=== PATIENT | male | born 1960 | race Caucasian/White ===

== ENCOUNTER 2018-07-17 08:48 | Emergency (ER) | payer SELFPAY ==
[2018-07-17] MEDS ORDERED: Ketorolac 60 MG/2 ML SDV IM ONE (09:17)
--- NOTE | 2018-07-17 09:17 | EDM.PDOC ---
ED HPI GENERAL MEDICAL PROBLEM - General Chief Complaint: General Stated Complaint: PT FELL AND HURT LF RIB Time Seen by Provider: 07/17/18 09:01 - History of Present Illness INITIAL COMMENTS - FREE TEXT/NARRATIVE: HISTORY AND PHYSICAL: History of present illness: The patient is a 57-year-old male who presents complaints of left posterior rib pain that started after he slipped last night and the shower and hit the area on the toilet. He did not pass out or black out and has no head midline back pain neck pain abdominal pain or shortness of breath. He says he has pain in the posterior left ribs with movement or taking deep breath. He has taken Tylenol and Motrin [id number] this morning and he was advised on appropriate dosing. The patient has no extremity complaints area Review of systems: As per history of present illness and below otherwise all systems reviewed and negative. Past medical history: As per history of present illness and as reviewed below otherwise noncontributory. Surgical history: As per history of present illness and as reviewed below otherwise noncontributory. Social history: No reported history of drug or alcohol abuse. Family history: As per history of present illness and as reviewed below otherwise noncontributory. Physical exam General: Well-developed well-nourished overweight man who is nontoxic and speaking clearly in the ED without breathlessness. His vital signs have been noted by me. HEENT: Atraumatic, normocephalic, negative for conjunctival pallor or scleral icterus, mucous membranes moist, throat clear, neck supple, nontender, trachea midline. There is no evidence of any scalp or facial trauma. Her are no midline step-offs tenderness defects of the cervical spine Lungs: Clear to auscultation with slight splinting on deep breaths due to discomfort, breath sounds equal bilaterally, chest wall has no evidence of any ecchymosis or abrasions and has tenderness at the posterior left ribs without defects or crepitus. Heart: S1S2, regular rate and rhythm no overt murmurs Abdomen: Soft, nondistended, nontender. NABS. Negative for costovertebral tenderness. Pelvis: Stable nontender. Genitourinary: Deferred. Rectal: Deferred. Extremities: Atraumatic, full range of motion of all extremities defects or tenderness, negative for cords or calf pain. Neurovascular unremarkable. Neuro: Awake, alert, oriented. Cranial nerves II through XII unremarkable. Cerebellum unremarkable. Motor and sensory unremarkable throughout. Exam nonfocal. Back: There are no midline step-offs tenderness defects the thoracic or lumbar spine but there is posterior rib tenderness on the left described above without any soft tissue injuries appreciated Diagnostics: Patient was offered x-rays of the left ribs and declines Therapeutics: Toradol When I talked to the patient about doing x-rays to diagnose the has a rib fracture he says that he doesn't want to do those because he doesn't have insurance. He says he does want something for the pain. He is telling me that he has had a prior injury and that he has "soft ribs" on that side. I told him that I do not appreciate that on my examination and he has no pre-existing bony abnormalities in his medical history so I am not sure what he means by soft ribs. He did get angry at me at that point and said that he would just like something for pain and no further testing. I will give him some Toradol here and a few Tylenol with Codeine for home but told him that I can't do anything more than that without doing imaging. He states understanding Impression: Left posterior chest wall contusion Definitive disposition and diagnosis as appropriate pending reevaluation and review of above. left rib Pain Score (Numeric/FACES): 10 - Related Data Allergies Allergy/AdvReac Type Severity Reaction Status Date / Time No Known Allergies Allergy Verified 07/17/18 09:03 Past Medical History Cardiovascular History: Reports: Hypertension - Infectious Disease History Infectious Disease History: Reports: Measles - Past Surgical History Other Respiratory Surgeries/Procedures: hx of collapsed lung GI Surgical History: Reports: Hernia Repair/Other Musculoskeletal Surgical History: Reports: Shoulder Surgery Social & Family History - Family History Family Medical History: Noncontributory - Tobacco Use Smoking Status *Q: Current Every Day Smoker Years of Tobacco use: 30 Packs/Tins Daily: 1 - Caffeine Use Caffeine Use: Reports: Energy Drinks - Alcohol Use Days Per Week of Alcohol Use: 2 Number of Drinks Per Day: 3 Total Drinks Per Week: 6 - Recreational Drug Use Recreational Drug Use: No ED ROS GENERAL - Review of Systems Review Of Systems: ROS reveals no pertinent complaints other than HPI. ED EXAM, GENERAL - Physical Exam Exam: See Below (See dictation) Course - Vital Signs Last Recorded V/S: Last Vital Signs Temp 36.3 C 07/17/18 09:04 Pulse 94 07/17/18 09:04 Resp 18 07/17/18 09:04 BP 149/94 H 07/17/18 09:04 Pulse Ox 95 07/17/18 09:04 - Orders/Labs/Meds Orders: Active Orders 24 hr Category Date Time Status Ketorolac [Toradol] Med 07/17/18 09:17 Once 60 mg IM ONETIME ONE Departure - Departure Time of Disposition: Disposition: Home, Self-Care 01 Condition: Good Clinical Impression: Contusion of rib on left side Qualifiers: Encounter type: initial encounter Qualified Code(s): S20.212A - Contusion of left front wall of thorax, initial encounter - Discharge Information Referrals: PCP,None [Primary Care Provider] - Forms: ED Department Discharge Additional Instructions: The following information is given to patients seen in the emergency department who are being discharged to home. This information is to outline your options for follow-up care. We provide all patients seen in our emergency department with a follow-up referral. The need for follow-up, as well as the timing and circumstances, are variable depending upon the specifics of your emergency department visit. If you don't have a primary care physician on staff, we will provide you with a referral. We always advise you to contact your personal physician following an emergency department visit to inform them of the circumstance of the visit and for follow-up with them and/or the need for any referrals to a consulting specialist. The emergency department will also refer you to a specialist when appropriate. This referral assures that you have the opportunity for followup care with a specialist. All of these measure are taken in an effort to provide you with optimal care, which includes your followup. Under all circumstances we always encourage you to contact your private physician who remains a resource for coordinating your care. When calling for followup care, please make the office aware that this follow-up is from your recent emergency room visit. If for any reason you are refused follow-up, please contact the [facility] emergency department at and ask to speak to the emergency department charge nurse. [facility] Primary care- Internal Medicine and Family [place] [phone] Use ice to area for the next 24 hours and subsequently as needed for pain and inflammation/swelling. Please use [id number] ibuprofen, 800 mg every 8 hours, and add the Tylenol with codeine 3 and prescribed but take only when you are home not while you are at work. Call and schedule a follow-up appointment as he chews for further care and evaluation and return to ER as needed and as discussed and return to ER if you would like further testing. - My Orders Last 24 Hours: My Active Orders 07/17/18 09:17 Ketorolac [Toradol] 60 mg IM ONETIME ONE - Assessment/Plan Last 24 Hours: My Active Orders 07/17/18 09:17 Ketorolac [Toradol] 60 mg IM ONETIME ONE
== END 2018-07-17 09:35 | disposition home or self-care (01) ==
LOC: MW.ED 08:48
DX: S20.212A Contusion of left front wall of thorax, initial encounter (principal); F17.210 Nicotine dependence, cigarettes, uncomplicated; W01.198A Fall on same level from slipping, tripping and stumbling with subsequent striking against other object, initial encounter
CPT/HCPCS: 96372; 99283; J1885